=== PATIENT | female | born 1950 | race Hispanic/Latino ===

== ENCOUNTER → 2017-08-30 | Outpatient (CLI) | payer OTHER ==
[~2017-08-30] MED LIST: ASPI-555 PO; ATOR40TA71 PO; CITA-107 PO; LOVA20TA3 PO; METF500T6 PO; METO-408 PO; NITR0.4T SL; OXYB5TAB10 PO
== END | disposition home or self-care (01) ==
LOC: RAH 08:34
PROVIDERS: ATTEND Family Medicine
DX: D05.11 Intraductal carcinoma in situ of right breast (principal); R92.2 Inconclusive mammogram
CPT/HCPCS: 77066

== ENCOUNTER 2017-09-18 14:34 | Emergency (ER) | payer OTHER ==
[2017-09-18] MEDS ORDERED: DEXAMETHASONE SOD PHOSPHATE 10MG/ML 1ML VIAL ONE (15:07)
[2017-09-18] MEDS ORDERED: ONDANSETRON ODT 4 MG TAB ONE (15:07)
[2017-09-18] MEDS ORDERED: DIAZEPAM 5 MG TABLET ONE (15:07)
[2017-09-18] MEDS ORDERED: MORPHINE SULFATE 4 MG/1ML SYG ONE (15:08)
[2017-09-18 15:15] LABS: APPEARANCE,URINE Cloudy (CLEAR); BILIRUBIN,URINE Negative (NEGATIVE); COLOR,URINE Yellow (YELLOW); GLUCOSE, URINE (UA) Negative (NEGATIVE); KETONES,URINE Negative (NEGATIVE); LEUKOCYTE ESTERASE ,URINE Small (NEGATIVE); NITRATE,URINE Negative (NEGATIVE); OCCULT BLOOD,URINE Negative (NEGATIVE); PROTEIN,URINE Negative (NEGATIVE)
[2017-09-18 15:29] LABS: CALCIUM OXALATE CRYSTALS,UR Moderate /LPF (None Seen)
[2017-09-18 15:30] LABS: BACTERIA,URINE Few /HPF (None Seen); RBC,URINE None Seen /HPF (0-1)
== END 2017-09-18 16:02 | disposition home or self-care (01) ==
LOC: EDH 14:34
DX: M54.16 Radiculopathy, lumbar region (principal); R20.2 Paresthesia of skin; R53.1 Weakness; I10 Essential (primary) hypertension; E11.9 Type 2 diabetes mellitus without complications; E78.00 Pure hypercholesterolemia, unspecified; Z85.3 Personal history of malignant neoplasm of breast
CPT/HCPCS: 72100; 81001; 96372 ×2; 99285; J1100; J2270

== ENCOUNTER 2018-03-11 05:30 | Day surgery (SDC) | payer OTHER ==
[2018-03-07 09:16] LABS: BASOPHILS % (AUTO) 0.4 % (0.0-5.0); EOSINOPHILS % (AUTO) 1.8 % (0.0-8.0); LYMPHOCYTES % (AUTO) 18.5 % (21.0-51.0); MEAN CORPUSCULAR HEMOGLOBIN 29.5 pg (27.0-33.0); MEAN CORPUSCULAR HGB CONC 33.3 g/dL (32.0-36.0); MEAN CORPUSCULAR VOLUME 88.8 fL (79-99); MONOCYTES % (AUTO) 7.1 % (3.0-13.0); NEUTROPHILS % (AUTO) 72.2 % (40.0-77.0); PLATELET COUNT (AUTO) 222 K/uL (130-400); RED BLOOD CELL COUNT(AUTO) 4.62 MIL/uL (4.00-5.50); RED CELL DISTRIBUTION WIDTH 13.6 % (11.0-15.5); WHITE BLOOD COUNT (AUTO) 8.4 K/uL (4.8-10.8)
[2018-03-07 09:18] LABS: APPEARANCE,URINE Clear (CLEAR); BILIRUBIN,URINE Negative (NEGATIVE); COLOR,URINE Yellow (YELLOW); GLUCOSE, URINE (UA) Negative (NEGATIVE); KETONES,URINE Negative (NEGATIVE); LEUKOCYTE ESTERASE ,URINE Negative (NEGATIVE); NITRATE,URINE Negative (NEGATIVE); OCCULT BLOOD,URINE Negative (NEGATIVE); PROTEIN,URINE Negative (NEGATIVE)
[2018-03-07 09:26] LABS: CREATININE 0.8 mg/dL (0.5-1.5); POTASSIUM 4.8 mmol/L (3.5-5.1)
[2018-03-07 09:31] LABS: INR 0.99 (0.85-1.15); PROTHROMBIN TIME 10.4 SEC (9.6-11.6)
[2018-03-07 09:33] VITALS: BP 145/52
[~2018-03-11] VITALS: Ht 152.4 cm; Wt 90.3 kg
[2018-03-11] VITALS (12 sets, daily range): BP systolic 120–154; BP diastolic 38–53
[~2018-03-11 05:30] MED LIST changes: +AMLO5TAB7 PO; +ANAS1TAB7 PO; +BUSP5TAB3 PO; +CELE-84 PO; +LISI1TAB11 PO; -LOVA20TA3 PO; +METF-444 PO; -METF500T6 PO; -METO-408 PO; +PANT20TA12 PO; +PROP60TA20 PO; +TRAM50TA4 PO
[2018-03-11] MEDS ORDERED: SODIUM CHLORIDE 0.9% 1000ML 1,000 ML IV ONE (06:17)
[2018-03-11] MEDS ORDERED: ALBU8.5H8 IH (07:15)
[2018-03-11] MEDS ORDERED: ESMOLOL HCL 10 MG/ML 10 ML VIAL ONE (09:31)
[2018-03-11] MEDS ORDERED: LIDOCAINE PF 2% 5ML ABBOJECT ONE (09:31)
[2018-03-11] MEDS ORDERED: PROTAMINE SULFATE 10 MG/ML 25ML VIAL IV ONE (09:31)
[2018-03-11] MEDS ORDERED: EPINEPHRINE 1 MG/ML AMPULE ONE (09:31)
[2018-03-11] MEDS ORDERED: HEPARIN SODIUM 1000UNIT/ML 10ML VIAL ONE (09:31)
[2018-03-11] MEDS ORDERED: SODIUM BICARB 50MEQ 50ML VIAL ONE (09:31)
[2018-03-11] MEDS ORDERED: NOREPINEPHRINE BITARTRATE 1 MG/1 ML ML IV ONE (09:31)
[2018-03-11] MEDS ORDERED: AMINOCAPROIC ACID 250 MG/ML 20 ML VIAL IV ONE (09:31)
[2018-03-11] MEDS ORDERED: MIDAZOLAM HCL 1 MG/ML 5ML VIAL ONE (09:32)
[2018-03-11] MEDS ORDERED: PROPOFOL 10 MG/ML 20ML VIAL IV ONE (09:32)
[2018-03-11] MEDS ORDERED: FENTANYL CITRATE PF 50 MCG/1 ML 20ML VIAL IJ ONE (09:32)
[2018-03-11] MEDS ORDERED: KETAMINE 50MG/ML SYRINGE 50 MG/ML DISP.SYRIN IV ONE (09:33)
[2018-03-11] MEDS ORDERED: NITROGLYCERIN 5 MG/ML 10 ML VIAL IV ONE (10:59)
[2018-03-11] MEDS ORDERED: IOHEXOL-350 50ML VIAL IV ONE (10:59)
[2018-03-11] MEDS ORDERED: IOHEXOL 350 MG/ML 100ML INFUS..BTL IV ONE (10:59)
[2018-03-11] MEDS ORDERED: LIDOCAINE HCL 2% 20ML ONE (11:00)
[2018-03-11] MEDS ORDERED: SODIUM CHLORIDE 0.9% 1000ML 1,000 ML IV SCH (12:13)
[2018-03-11] MEDS ORDERED: GLUCAGON 1MG KIT 1 MG ML IM PRN (12:15)
[2018-03-11] MEDS ORDERED: DEXTROSE 50%-WATER 50 ML DISP.SYRIN IV PRN (12:15)
== END 2018-03-11 16:29 | disposition home or self-care (01) ==
LOC: DAH 05:30
PROVIDERS: ATTEND Internal Medicine Cardiovascular Disease
DX: I25.118 Atherosclerotic heart disease of native coronary artery with other forms of angina pectoris (principal); I34.0 Nonrheumatic mitral (valve) insufficiency; I10 Essential (primary) hypertension; E78.2 Mixed hyperlipidemia; E11.9 Type 2 diabetes mellitus without complications; Z86.73 Personal history of transient ischemic attack (TIA), and cerebral infarction without residual deficits; Z68.38 Body mass index [BMI] 38.0-38.9, adult; Z90.710 Acquired absence of both cervix and uterus; Z79.899 Other long term (current) drug therapy; Z79.84 Long term (current) use of oral hypoglycemic drugs; Z82.49 Family history of ischemic heart disease and other diseases of the circulatory system; Z79.01 Long term (current) use of anticoagulants
CPT/HCPCS: 36415; 71045; 80048; 81003; 82948 ×2; 85025; 85610; 85730; 93005; 93458; A4606; C1760; C1894; J1644; J3490 ×2; J7030; Q9965; Q9967; J0171; J2001; J2250; J2704; J2720; J3010

== ENCOUNTER → 2018-09-05 | Outpatient (CLI) | payer OTHER ==
[~2018-09-05] MED LIST changes: +ALBU8.5H8 IH; -AMLO5TAB7 PO; +AMLO5TAB9 PO
== END | disposition home or self-care (01) ==
LOC: RAH 08:07
PROVIDERS: ATTEND Internal Medicine Medical Oncology
DX: R92.8 Other abnormal and inconclusive findings on diagnostic imaging of breast (principal); Z85.3 Personal history of malignant neoplasm of breast
CPT/HCPCS: 77066

== ENCOUNTER 2019-02-14 09:38 | Emergency (ER) | payer OTHER ==
[~2019-02-14 09:38] MED LIST changes: -LISI1TAB11 PO; +LISI1TAB28 PO; -OXYB5TAB10 PO; +OXYB5TAB15 PO
[2019-02-14 10:20] LABS: BASOPHILS % (AUTO) 0.7 % (0.0-5.0); EOSINOPHILS % (AUTO) 1.2 % (0.0-8.0); HEMATOCRIT 41.5 % (36-48); LYMPHOCYTES % (AUTO) 19.4 % (21.0-51.0); MEAN CORPUSCULAR HEMOGLOBIN 30.4 pg (27.0-33.0); MEAN CORPUSCULAR HGB CONC 33.8 g/dL (32.0-36.0); MEAN CORPUSCULAR VOLUME 89.7 fL (79-99); MONOCYTES % (AUTO) 7.1 % (3.0-13.0); NEUTROPHILS % (AUTO) 71.6 % (40.0-77.0); PLATELET COUNT (AUTO) 230 K/uL (130-400); RED BLOOD CELL COUNT(AUTO) 4.63 MIL/uL (4.00-5.50); RED CELL DISTRIBUTION WIDTH 14.9 % (11.0-15.5); WHITE BLOOD COUNT (AUTO) 9.6 K/uL (4.8-10.8)
[2019-02-14 10:30] LABS: CREATININE 0.8 mg/dL (0.5-1.5); POTASSIUM 4.2 mmol/L (3.5-5.1)
[2019-02-14] MEDS ORDERED: DIAZEPAM 5 MG TABLET ONE (10:30)
[2019-02-14] MEDS ORDERED: KETOROLAC TROMETHAMINE 15MG/ML ONE (10:30)
[2019-02-14 10:33] LABS: INR 0.96 (0.85-1.15); PARTIAL THROMBOPLASTIN TIME 26.4 SEC (26.3-35.5); PROTHROMBIN TIME 10.1 SEC (9.6-11.6)
[2019-02-14 10:37] LABS: ALBUMIN 3.4 g/dL (3.5-5.0); BILIRUBIN,TOTAL 0.5 mg/dL (0.2-1.0); TOTAL PROTEIN, SERUM 7.3 g/dL (6.0-8.3)
[2019-02-14 10:48] LABS: APPEARANCE,URINE Clear (CLEAR); BILIRUBIN,URINE Negative (NEGATIVE); COLOR,URINE Yellow (YELLOW); GLUCOSE, URINE (UA) Negative (NEGATIVE); KETONES,URINE Negative (NEGATIVE); LEUKOCYTE ESTERASE ,URINE Negative (NEGATIVE); NITRATE,URINE Negative (NEGATIVE); OCCULT BLOOD,URINE Negative (NEGATIVE); PH,URINE 5.5 (5.0-8.0); PROTEIN,URINE Negative (NEGATIVE)
== END 2019-02-14 11:45 | disposition home or self-care (01) ==
LOC: EDH 09:38
DX: S39.011A Strain of muscle, fascia and tendon of abdomen, initial encounter (principal); M54.16 Radiculopathy, lumbar region; E11.9 Type 2 diabetes mellitus without complications; E78.00 Pure hypercholesterolemia, unspecified; I10 Essential (primary) hypertension; Z85.3 Personal history of malignant neoplasm of breast; X58.XXXA Exposure to other specified factors, initial encounter; Y93.89 Activity, other specified; Y92.89 Other specified places as the place of occurrence of the external cause; Y99.8 Other external cause status
CPT/HCPCS: 36415; 71045; 74176; 80053; 81003; 82550; 84484; 85025; 85610; 85730; 93005; 96374; 99285; J1885

== ENCOUNTER 2019-06-24 07:47 | Day surgery (SDC) | payer OTHER ==
[~2019-06-24] VITALS: Ht 149.9 cm; Wt 92.5 kg
[2019-06-24] VITALS (7 sets, daily range): BP systolic 105–167; BP diastolic 57–97
[~2019-06-24 07:47] MED LIST changes: +SODIUM CHLORIDE 0.9% 1000ML 1,000 ML IV ONE
[2019-06-24] MEDS ORDERED: PROPOFOL 10 MG/ML 20ML VIAL IV ONE ×2 (10:30)
== END 2019-06-24 11:30 | disposition home or self-care (01) ==
LOC: DAH 07:47
PROVIDERS: ATTEND Internal Medicine
DX: K59.01 Slow transit constipation (principal); D12.0 Benign neoplasm of cecum; D12.3 Benign neoplasm of transverse colon; K64.0 First degree hemorrhoids; E11.9 Type 2 diabetes mellitus without complications; I10 Essential (primary) hypertension; F41.9 Anxiety disorder, unspecified; E78.5 Hyperlipidemia, unspecified; E03.9 Hypothyroidism, unspecified; F32.9 Major depressive disorder, single episode, unspecified; M19.90 Unspecified osteoarthritis, unspecified site; Z85.3 Personal history of malignant neoplasm of breast
CPT/HCPCS: 45385; 82948; 88305; A4215; A4221; A4222; A4223; A4606; A4620; A4663; J2704 ×2; J7030

== ENCOUNTER → 2019-09-09 | Outpatient (CLI) | payer OTHER ==
[~2019-09-09] MED LIST changes: -SODIUM CHLORIDE 0.9% 1000ML 1,000 ML IV ONE
== END | disposition home or self-care (01) ==
LOC: RAH 06-16 08:39
PROVIDERS: ATTEND Family Medicine
DX: D05.11 Intraductal carcinoma in situ of right breast (principal); Z85.3 Personal history of malignant neoplasm of breast
CPT/HCPCS: 77066

== ENCOUNTER → 2020-02-19 | Outpatient (CLI) | payer OTHER ==
[~2020-02-19] MED LIST changes: +AMLO-257 PO; -AMLO5TAB9 PO; -ASPI-555 PO; +ASPI-556 PO; +IOHEXOL 350 MG/ML 100ML INFUS..BTL IV ONE; -LISI1TAB28 PO; +LISI1TAB51 PO; -PANT20TA12 PO; +PANT20TA18 PO
== END | disposition home or self-care (01) ==
LOC: RAH 08:26
PROVIDERS: ATTEND Internal Medicine Gastroenterology
DX: K42.9 Umbilical hernia without obstruction or gangrene (principal); K57.30 Diverticulosis of large intestine without perforation or abscess without bleeding; M47.814 Spondylosis without myelopathy or radiculopathy, thoracic region; J98.11 Atelectasis; I70.90 Unspecified atherosclerosis
CPT/HCPCS: 74178; Q9967

== ENCOUNTER → 2020-04-09 | Outpatient (CLI) | payer OTHER ==
[~2020-04-09] MED LIST changes: -IOHEXOL 350 MG/ML 100ML INFUS..BTL IV ONE
== END | disposition home or self-care (01) ==
LOC: RAH 08:30
PROVIDERS: ATTEND Internal Medicine Gastroenterology
DX: K76.0 Fatty (change of) liver, not elsewhere classified (principal)
CPT/HCPCS: 76700

== ENCOUNTER → 2020-09-14 | Outpatient (CLI) | payer OTHER | END | disposition home or self-care (01) | LOC: RAH 14:49 | PROVIDERS: ATTEND Family Medicine | DX: R92.2 Inconclusive mammogram (principal); D05.11 Intraductal carcinoma in situ of right breast | CPT/HCPCS: 77066 ==

== ENCOUNTER → 2021-04-27 | Outpatient (CLI) | payer OTHER ==
[~2021-04-27] MED LIST changes: +IOHEXOL 350 MG/ML 100ML INFUS..BTL IV ONE
== END | disposition home or self-care (01) ==
LOC: RAH 08:53
PROVIDERS: ATTEND Internal Medicine Cardiovascular Disease
DX: I25.119 Atherosclerotic heart disease of native coronary artery with unspecified angina pectoris (principal); I25.83 Coronary atherosclerosis due to lipid rich plaque
CPT/HCPCS: 75574; Q9967

== ENCOUNTER → 2021-09-07 | Outpatient (CLI) | payer OTHER ==
[~2021-09-07] MED LIST changes: -IOHEXOL 350 MG/ML 100ML INFUS..BTL IV ONE
== END | disposition home or self-care (01) ==
LOC: LAB 10:39
PROVIDERS: ATTEND Internal Medicine Cardiovascular Disease
DX: R06.02 Shortness of breath (principal)
CPT/HCPCS: 36415; 83880

== ENCOUNTER → 2021-09-15 | Outpatient (CLI) | payer OTHER | END | disposition home or self-care (01) | LOC: RAH 08:48 | PROVIDERS: ATTEND Family Medicine | DX: D05.11 Intraductal carcinoma in situ of right breast (principal) | CPT/HCPCS: 77066 ==

== ENCOUNTER → 2022-09-13 | Outpatient (CLI) | payer OTHER | END | disposition home or self-care (01) | LOC: RAH 07:45 | PROVIDERS: ATTEND Family Medicine | DX: D05.11 Intraductal carcinoma in situ of right breast (principal) | CPT/HCPCS: 77066 ==

== ENCOUNTER → 2023-09-24 | Outpatient (CLI) | payer OTHER ==
[~2023-09-24] MED LIST changes: +CELE-125 PO; -CELE-84 PO; -OXYB5TAB15 PO; +OXYB5TAB20 PO
== END | disposition home or self-care (01) ==
LOC: RAH 08:42
PROVIDERS: ATTEND Family Medicine
DX: Z12.31 Encounter for screening mammogram for malignant neoplasm of breast (principal)
CPT/HCPCS: 77067

== ENCOUNTER → 2024-09-24 | Outpatient (CLI) | payer OTHER ==
--- NOTE | 2024-09-25 09:26 | HMCIMG ---
Exam Type: MAMMO SCREENING BILATERAL Clinical Information: ANNUAL SCREENING Comparison: September 24, 2023 Technique: Mammogram with CAD was performed with CC and MLO projections. CAD shows no worrisome regions. FINDINGS: The breasts are heterogeneously dense, which may obscure small masses. No dominant mass or suspicious microcalcification identified. There is no nipple retraction or skin thickening. Benign-appearing calcifications are seen. CAD shows no worrisome regions. IMPRESSION: 1. No mammographic signs of malignancy. 2. Routine follow-up recommended. CATEGORY 2: BENIGN FINDINGS Note: A negative x-ray should not delay biopsy if a dominant or clinically suspicious mass is present, since 8-10% of cancers are not identified by mammography. Dense breasts may obscure an underlying neoplasm.
== END | disposition home or self-care (01) ==
LOC: RAH 09:23
PROVIDERS: ATTEND Family Medicine
DX: Z12.31 Encounter for screening mammogram for malignant neoplasm of breast (principal); R92.333 Mammographic heterogeneous density, bilateral breasts
CPT/HCPCS: 77067